=== PATIENT | female | born 1940 | race Caucasian/White ===

== ENCOUNTER → 2016-10-21 | Outpatient (CLI) | payer MEDICARE ==
[~2016-10-21] MED LIST: ASCO500C2 PO; LEVO25TA4 PO; METO50TA82 PO; OMEP-110 PO; SIMV10TA3 PO
== END | disposition home or self-care (01) ==
LOC: CFH 12:27
PROVIDERS: ATTEND Internal Medicine Cardiovascular Disease
DX: I08.3 Combined rheumatic disorders of mitral, aortic and tricuspid valves (principal)
CPT/HCPCS: 93306

== ENCOUNTER 2018-03-12 00:13 | Emergency (ER) | payer MEDICARE ==
[~2018-03-12] VITALS: Ht 162.6 cm; Wt 63.3 kg
[2018-03-12] MEDS ORDERED: PHENYLEPHRINE NASAL 1%, 15ML SPRAY NAS STA (00:31)
[2018-03-12] MEDS ORDERED: PHENYLEPHRINE NASAL 1%, 15ML SPRAY ONE (00:33)
--- NOTE | 2018-03-12 02:00 | NUR ---
PT NOSE CONTINUES TO BLEED DESPITE NEOSYNEPHRINE SPRAY AND CLAMP. PAIGE KING AWARE.
[2018-03-12 02:03] VITALS: BP 133/61
--- NOTE | 2018-03-12 02:31 | NUR ---
PT NOSTRIL PACKED TO STOP BLEEDING.
--- NOTE | 2018-03-12 02:40 | NUR ---
Patient/Caregiver given discharge instructions and they have confirmed that they understand the instructions. Patient ambulatory with steady gait.
[2018-03-13] MEDS ORDERED: AMLO2.5T5 PO (10:00)
[2018-03-13] MEDS ORDERED: ASPI-496 PO (10:00)
[2018-03-13] MEDS ORDERED: IRBE300T16 PO (10:00)
[2018-03-13] MEDS ORDERED: UBID100C24 PO (10:03)
[2018-03-13] MEDS ORDERED: CHOL100011 PO (10:03)
[2018-03-13] MEDS ORDERED: CYAN100014 PO (10:03)
[2018-03-13] MEDS ORDERED: CALC1CAP8 PO (10:03)
== END 2018-03-12 02:42 | disposition home or self-care (01) ==
LOC: ED 00:28
DX: R04.0 Epistaxis (principal); I48.91 Unspecified atrial fibrillation
CPT/HCPCS: 30901; 99284

== ENCOUNTER 2018-03-13 08:37 | Observation (INO) | payer MEDICARE ==
[~2018-03-13] VITALS: Ht 162.6 cm; Wt 63.8 kg
[2018-03-13] MEDS ORDERED: SODIUM CHLORIDE FLUSH 10ML SYR IVF ONE (09:30)
[2018-03-13] MEDS ORDERED: ASPIRIN 81 MG TABLET CHEW PO ONE (09:30)
[2018-03-13 09:40] LABS: BASOPHILS # (AUTO) 0.01 x10^3/uL (0-0.1); BASOPHILS % (AUTO) 0 % (0-1); EOSINOPHILS # (AUTO) 0.02 x10^3/uL (0-0.4); EOSINOPHILS % (AUTO) 0 % (1-7); LYMPHOCYTES # (AUTO) 0.96 x10^3/uL (1-3.4); LYMPHOCYTES % (AUTO) 11 % (22-44); MD NO; MEAN CORPUSCULAR HEMOGLOBIN 31.3 pg (27.0-34.8); MEAN CORPUSCULAR HGB CONC 33.3 g/dL (32.4-35.8); MEAN PLATELET VOLUME 9.2 fL (7.4-10.4); MONOCYTES # (AUTO) 0.49 x10^3/uL (0.2-0.8); MONOCYTES % (AUTO) 6 % (2-9); NEUTROPHILS # (AUTO) 6.93 x10^3/uL (1.8-6.8); NEUTROPHILS % (AUTO) 82 % (42-75); PLATELET COUNT 193 x10^3/uL (130-400); RED BLOOD COUNT 3.82 x10^6/uL (3.82-5.3); RED CELL DISTRIBUTION WIDTH 14.1 % (9.6-15.2)
[2018-03-13 09:51] LABS: INTERNATIONAL NORMALIZED RATIO 1.04 (0.93-1.1)
[2018-03-13 09:53] LABS: ALBUMIN 3.9 g/dL (3.4-5.0); ANION GAP 5 mmol/L (5-15); CALCIUM 9.1 mg/dL (8.5-10.1); CHLORIDE 107 mmol/L (98-107)
[2018-03-13] MEDS ORDERED: ASPIRIN 81 MG TABLET CHEW ONE (09:55)
[2018-03-13 09:59] LABS: ALANINE AMINOTRANSFERASE 34 U/L (12-78); ALKALINE PHOSPHATASE 62 U/L (45-117); BILIRUBIN,TOTAL 1.4 mg/dL (0.2-1.0); CREATININE 1.03 mg/dL (0.55-1.02); T4 (THYROXINE) 12.5 mcg/dL (4.8-13.9); TOTAL PROTEIN 7.3 g/dL (6.4-8.2); TROPONIN I < 0.015 ng/mL (0.000-0.045)
[2018-03-13] MEDS ORDERED: ASPI-496 PO (10:00)
[2018-03-13] MEDS ORDERED: AMLO2.5T5 PO (10:00)
[2018-03-13] MEDS ORDERED: IRBE300T16 PO (10:00)
[2018-03-13] MEDS ORDERED: CYAN100014 PO (10:03)
[2018-03-13] MEDS ORDERED: CHOL100011 PO (10:03)
[2018-03-13] MEDS ORDERED: CALC1CAP8 PO (10:03)
[2018-03-13] MEDS ORDERED: UBID100C24 PO (10:03)
--- NOTE | 2018-03-13 10:40 | NUR ---
PT RESTING NADA
[2018-03-13] MEDS ORDERED: hydrALAzine 20 MG/ML, 1ML IVPush PRN (11:30)
[2018-03-13] MEDS ORDERED: ONDANSETRON 2MG/ML, 2ML IVPush PRN (11:30)
[2018-03-13] MEDS ORDERED: ONDANSETRON ODT 4 MG PO PRN (11:30)
[2018-03-13] MEDS ORDERED: BISACODYL 10 MG SUPP PR PRN (11:30)
[2018-03-13] MEDS ORDERED: DOCUSATE 100 MG CAPSULE PO PRN (11:30)
[2018-03-13] MEDS ORDERED: ACETAMINOPHEN 325 MG TABLET PO PRN (11:30)
[2018-03-13] MEDS ORDERED: ENALAPRILAT 1.25 MG/ML, 2ML IVPush PRN (11:30)
--- NOTE | 2018-03-13 11:38 | NUR ---
ADMIT HAS BEE TO THE BS
--- NOTE | 2018-03-13 12:09 | NUR ---
PT TO MRI
[2018-03-13 12:14] LABS: FREE T4 (FREE THYROXINE) 1.46 ng/dL (0.76-1.46); THYROID STIMULATING HORMONE 3.12 mIU/L (0.358-3.740)
[2018-03-13 12:20] LABS: HEMOGLOBIN A1C 5.5 % (4.2-6.3)
--- NOTE | 2018-03-13 12:40 | NUR ---
LUNCH BREAK NOTE: PT RESTING IN BED IN NAD. VSS. MEAL TRAY ORDERED FOR PT. 3 P'S ADDRESSED. PT DENIES ANY PAIN.
[2018-03-13] MEDS ORDERED: IRON SUCROSE COMPLEX 100MG/5ML IV SCH (13:30)
--- NOTE | 2018-03-13 14:38 | NUR ---
FLUIDS PRIVIDE AND CALLED TO CONFIRM DIET TRAY ORDER
[2018-03-13 16:42] VITALS: BP 107/69
[2018-03-13 18:26] LABS: CULTURE INDICATED? YES; MICROSCOPIC INDICATED
[2018-03-13 19:19] VITALS: BP 104/66
[2018-03-13] MEDS ORDERED: SIMVASTATIN 20 MG TABLET PO SCH (21:00)
[2018-03-14 01:28] VITALS: BP 115/64
[2018-03-14 05:12] VITALS: BP 92/58
[2018-03-14 05:18] VITALS: BP 97/65
[2018-03-14 05:20] VITALS: BP 96/60
[2018-03-14 05:39] LABS: BASOPHILS # (AUTO) 0.02 x10^3/uL (0-0.1); BASOPHILS % (AUTO) 0 % (0-1); EOSINOPHILS # (AUTO) 0.01 x10^3/uL (0-0.4); EOSINOPHILS % (AUTO) 0 % (1-7); LYMPHOCYTES # (AUTO) 1.55 x10^3/uL (1-3.4); LYMPHOCYTES % (AUTO) 22 % (22-44); MD NO; MEAN CORPUSCULAR HEMOGLOBIN 32.2 pg (27.0-34.8); MEAN CORPUSCULAR HGB CONC 34.4 g/dL (32.4-35.8); MEAN CORPUSCULAR VOLUME 93.7 fL (80-100); MEAN PLATELET VOLUME 9.1 fL (7.4-10.4); MONOCYTES # (AUTO) 0.74 x10^3/uL (0.2-0.8); MONOCYTES % (AUTO) 11 % (2-9); NEUTROPHILS # (AUTO) 4.65 x10^3/uL (1.8-6.8); NEUTROPHILS % (AUTO) 67 % (42-75); PLATELET COUNT 173 x10^3/uL (130-400); RED BLOOD COUNT 3.52 x10^6/uL (3.82-5.3); RED CELL DISTRIBUTION WIDTH 14.2 % (9.6-15.2)
[2018-03-14 05:50] LABS: ALBUMIN 3.3 g/dL (3.4-5.0); ANION GAP 6 mmol/L (5-15); CALCIUM 8.1 mg/dL (8.5-10.1); CHLORIDE 110 mmol/L (98-107)
[2018-03-14 05:55] LABS: ALANINE AMINOTRANSFERASE 26 U/L (12-78); ALKALINE PHOSPHATASE 53 U/L (45-117); BILIRUBIN,TOTAL 1.7 mg/dL (0.2-1.0); CREATININE 0.97 mg/dL (0.55-1.02); TOTAL PROTEIN 6.3 g/dL (6.4-8.2)
[2018-03-14 06:50] VITALS: BP_SYST 109; BP_SYST 97; BP_SYST 98; BP_DIAS 58; BP_DIAS 61; BP_DIAS 71
[2018-03-14] MEDS ORDERED: SENNA/DOCUSATE TABLET PO SCH (09:00)
[2018-03-14] MEDS ORDERED: IRBESARTAN 300 MG TABLET PO SCH (09:00)
[2018-03-14] MEDS ORDERED: AMLODIPINE 2.5 MG TABLET PO SCH (09:00)
[2018-03-14] MEDS ORDERED: METOPROLOL TARTRATE 50 MG TABLET PO SCH (09:00)
[2018-03-14] MEDS ORDERED: CYANOCOBALAMIN 1,000 MCG TABLET PO SCH (09:00)
[2018-03-14] MEDS ORDERED: CALCIUM/VITAMIN D3 250-125 TABLET PO SCH (09:00)
[2018-03-14] MEDS ORDERED: ASPIRIN 81 MG TABLET CHEW PO SCH (09:00)
[2018-03-14] MEDS ORDERED: CHOLECALCIFEROL 1,000 UNIT TABLET PO SCH (09:00)
[2018-03-14] MEDS ORDERED: LEVOTHYROXINE 25 MCG TABLET PO SCH (09:00)
[2018-03-14] MEDS ORDERED: ASCORBIC ACID 500 MG TABLET PO SCH (09:00)
[2018-03-14] MEDS ORDERED: TEMPLATE NON-FORMULARY MED. (Ubidecarenone (Coq-10) 1 TAB) PO SCH (09:00)
[2018-03-14] MEDS ORDERED: ACETAMINOPHEN 325 MG TABLET PO PRN (09:30)
[2018-03-14] MEDS ORDERED: FERROUS SULFATE 325 MG TABLET PO SCH (09:30)
[2018-03-14 12:36] VITALS: BP 112/71
[2018-03-14] MEDS ORDERED: CARVEDILOL 3.125 MG TABLET PO SCH (18:00)
== END 2018-03-14 16:00 | disposition home or self-care (01) ==
LOC: ED 09:59 → INTOOBSV 11:06 → EDIP 11:06 → 4EST 15:52
PROVIDERS: ADMIT Internal Medicine; ATTEND Internal Medicine
DX: R55 Syncope and collapse (principal); R04.0 Epistaxis; D50.9 Iron deficiency anemia, unspecified; I10 Essential (primary) hypertension; I48.2 Chronic atrial fibrillation; M81.0 Age-related osteoporosis without current pathological fracture; N17.9 Acute kidney failure, unspecified; R17 Unspecified jaundice; Z90.710 Acquired absence of both cervix and uterus
CPT/HCPCS: 36415; 70450; 70551; 71045; 80053; 81001; 83036; 83540; 83550; 83735; 83880; 84100; 84436; 84439; 84443; 84484; 85025; 85610; 85730; 87077; 87086; 87186; 93005; 93306; 95819; 96374; 97161; 97165; G0378; G8978; G8979; G8980; J1756

== ENCOUNTER → 2018-04-09 | Outpatient (CLI) | payer MEDICARE ==
[~2018-04-09] MED LIST changes: +AMLO2.5T5 PO; +ASPI-496 PO; +CALC1CAP8 PO; +CHOL100011 PO; +CYAN100014 PO; +IRBE300T16 PO; +REGADENOSON 0.4 MG/5 ML SYRINGE ONE; +UBID100C24 PO
== END | disposition home or self-care (01) ==
LOC: CFH 07:40
PROVIDERS: ATTEND Internal Medicine
DX: I34.0 Nonrheumatic mitral (valve) insufficiency (principal); I48.0 Paroxysmal atrial fibrillation; R55 Syncope and collapse
CPT/HCPCS: 78452; 93017; A9502; J2785

== ENCOUNTER → 2019-05-16 | Outpatient (CLI) | payer MEDICARE ==
[~2019-05-16] MED LIST changes: -IRBE300T16 PO; +IRBE300T8 PO; -REGADENOSON 0.4 MG/5 ML SYRINGE ONE; +SIMV10TA18 PO; -SIMV10TA3 PO
== END | disposition home or self-care (01) ==
LOC: CFH 09:44
PROVIDERS: ATTEND Internal Medicine Cardiovascular Disease
DX: I08.3 Combined rheumatic disorders of mitral, aortic and tricuspid valves (principal); I11.9 Hypertensive heart disease without heart failure; I48.91 Unspecified atrial fibrillation; E78.5 Hyperlipidemia, unspecified
CPT/HCPCS: 93306

== ENCOUNTER → 2019-07-06 | Outpatient (CLI) | payer MEDICARE | END | disposition home or self-care (01) | LOC: CFH 10:41 | PROVIDERS: ATTEND Licensed Practical Nurse | DX: M81.0 Age-related osteoporosis without current pathological fracture (principal); N95.9 Unspecified menopausal and perimenopausal disorder | CPT/HCPCS: 77080 ==

== ENCOUNTER → 2020-07-23 | Outpatient (CLI) | payer MEDICARE | END | disposition home or self-care (01) | LOC: CFH 09:47 | PROVIDERS: ATTEND Internal Medicine Cardiovascular Disease | DX: I08.8 Other rheumatic multiple valve diseases (principal); I10 Essential (primary) hypertension; E78.5 Hyperlipidemia, unspecified; I48.91 Unspecified atrial fibrillation | CPT/HCPCS: 93306 ==